=== PATIENT | male | born 1980 | race Two or more races ===

== ENCOUNTER 2016-08-28 23:28 | Emergency (ER) | payer SELFPAY ==
[~2016-08-28] VITALS: Ht 175.3 cm; Wt 63.5 kg
== END 2016-08-29 01:39 | disposition home or self-care (01) ==
LOC: SED 23:28
DX: T24.002A Burn of unspecified degree of unspecified site of left lower limb, except ankle and foot, initial encounter (principal); T24.001A Burn of unspecified degree of unspecified site of right lower limb, except ankle and foot, initial encounter; F17.200 Nicotine dependence, unspecified, uncomplicated; X12.XXXA Contact with other hot fluids, initial encounter; Y92.69 Other specified industrial and construction area as the place of occurrence of the external cause; Y99.0 Civilian activity done for income or pay
CPT/HCPCS: 16020; 99283